=== PATIENT | female | born 1985 | race American Indian/Alaskan Native ===

== ENCOUNTER 2017-08-30 19:25 | Emergency (ER) | payer BC ==
[2017-08-30 19:32] VITALS: TEMP 97.8
--- NOTE | 2017-08-30 19:38 | C.PDOC ---
History Of Present Illness 31 year old female presents today for evaluation of an anxiety attack. Patient reports she was on her way to her 's when she started the anxiety attack. Upon arrival patient is hyperventilating, patient states she has a history of anxiety attacks but never has been this bad. Patient denies SI/ HI, hallucinations, CP, palpitations. Time Seen by Provider: 08/30/17 19:38 Chief Complaint (Nursing): Anxiety History Per: Patient History/Exam Limitations: no limitations Onset/Duration Of Symptoms: Hrs Current Symptoms Are (Timing): Still Present Suicide/Self Injury Attempted (Context): None Modifying Factor(s): None Associated Symptoms: Anxiety, Agitation. denies: Depression, Suicidal Thoughts , Suicidal Plan Recent travel outside of the [place]: No Additional History Per: Patient Past Medical History Reviewed: Historical Data, Nursing Documentation, Vital Signs Vital Signs: Last Vital Signs Temp 97.8 F 08/30/17 19:28 Pulse 71 08/30/17 19:28 Resp 24 08/30/17 19:28 BP 119/77 08/30/17 19:28 Pulse Ox 100 08/30/17 19:56 - Medical History PMH: Anxiety, HTN Surgical History: No Surg Hx Family History: States: Unknown Family Hx - Social History Hx Tobacco Use: Yes Hx Alcohol Use: Yes Hx Substance Use: No - Immunization History Hx Tetanus Toxoid Vaccination: No Hx Influenza Vaccination: Yes Hx Pneumococcal Vaccination: No Review Of Systems Constitutional: Negative for: Fever, Chills Cardiovascular: Negative for: Chest Pain, Palpitations Respiratory: Positive for: Other (hyperventilating). Negative for: Cough Gastrointestinal: Negative for: Nausea, Vomiting Skin: Negative for: Rash Psych: Positive for: Anxiety Physical Exam - Physical Exam Appears: Non-toxic, Agitated, Other (hyperventilating) Skin: Warm, Dry Head: Normacephalic Eye(s): bilateral: Normal Inspection Oral Mucosa: Moist Neck: Supple Chest: Symmetrical Cardiovascular: Rhythm Regular Respiratory: No Rales, No Rhonchi, No Wheezing, Other (hyperventilating) Gastrointestinal/Abdominal: Soft, No Tenderness, No Guarding, No Rebound Back: Normal Inspection Extremity: No Tenderness, No Swelling Extremity: Bilateral: Atraumatic, Normal Color And Temperature, Normal ROM Neurological/Psych: Oriented x3, Normal Speech Gait: Steady ED Course And Treatment O2 Sat by Pulse Oximetry: 100 (ON RA) Pulse Ox Interpretation: Normal Progress Note: Patient was placed on a breather that is now connected to oxygen , patient states feeling better. Reevaluation Time: 21:44 Reassessment Condition: Improved Disposition Counseled Patient/Family Regarding: Studies Performed, Diagnosis, Need For Followup, Rx Given - Disposition Referrals: [facility] [Outside] [facility] [Outside] Disposition: HOME/ ROUTINE Disposition Time: 19:38 Condition: FAIR Additional Instructions: Please return if symptoms recur Prescriptions: Lorazepam [Ativan] 0.5 mg PO Q12 PRN #10 tab PRN Reason: Anxiety Instructions: Anxiety, Adult (DC), Hyperventilation Forms: [employer] (German) - Clinical Impression Clinical Impression: Anxiety, Hyperventilating - Scribe Statement The provider has reviewed the documentation as recorded by the Scribe Baldomero Conn All medical record entries made by the Scribe were at my direction and personally dictated by me. I have reviewed the chart and agree that the record accurately reflects my personal performance of the history, physical exam, medical decision making, and the department course for this patient. I have also personally directed, reviewed, and agree with the discharge instructions and disposition.
[2017-08-30 21:52] VITALS: BP 109/75; PULSE 16; RESP 98; O2SAT 87
== END 2017-08-30 21:56 | disposition home or self-care (01) ==
LOC: C.ER 19:25
DX: F41.9 Anxiety disorder, unspecified (principal); R06.4 Hyperventilation